=== PATIENT | female | born 1985 | race African-American/Black ===

== ENCOUNTER 2024-04-18 20:08 | Emergency (ER) | payer MEDICAID ==
[~2024-04-18] VITALS: Ht 167.6 cm; Wt 82.0 kg
[~2024-04-18 20:08] MED LIST: PRENATALS
[2024-04-18 20:16] VITALS: O2SAT 100
[2024-04-18 20:40] VITALS: BP 121/69; PULSE 74; RESP 18; TEMP 98
== END 2024-04-18 20:40 | disposition home or self-care (01) ==
LOC: ER 20:08
DX: S51.812D Laceration without foreign body of left forearm, subsequent encounter (principal); Z98.890 Other specified postprocedural states; X58.XXXD Exposure to other specified factors, subsequent encounter
CPT/HCPCS: 99281